=== PATIENT | male | born 1955 | race Caucasian/White ===

== ENCOUNTER 2021-05-11 10:14 | Outpatient (CLI) | payer MEDICARE, SELFPAY ==
--- NOTE | 2021-05-11 10:23 | XR_ITS ---
WS: [id number] LUMBAR SPINE: 8 VIEWS TECHNIQUE: AP, oblique, lateral, L5-S1 spot. Upright lateral projections in neutral, flexion and exte nsion. HISTORY: M54.50 - Low back pain, unspecified COMPARISON: None available. Very slight LEFT curvature lumbar spine with increase in lordosis. 5 mm anterolisthesis of L4 and ret rolisthesis of L3. Disc spaces are mildly narrowed throughout. Moderate facet joint sclerosis and anyi rowing at L4-5 and L5-S1. Very mild diffuse narrowing of the lumbar foramina but no high-grade stenos is. With flexion and extension the L3 retrolisthesis of L4 anterolisthesis do not change. SI joints are symmetric bilaterally. No soft tissue abnormalities. Mild scattered plaque within the abdominal aorta. XR/XR lumbar spine 6V w f/e [id number] IMPRESSION: 1. No acute fracture. 2. No lumbar spine instability. 3. Moderate facet joint arthritis at L4-5 and L5-S1. 4. Mild diffuse spondylosis.
== END 2021-05-11 10:15 | disposition home or self-care (01) ==
PROVIDERS: PCP Family Medicine; Visit Provider Emergency Medicine
DX: M47.816 Spondylosis without myelopathy or radiculopathy, lumbar region (principal); M47.817 Spondylosis without myelopathy or radiculopathy, lumbosacral region
CPT/HCPCS: 72114

== ENCOUNTER 2021-06-02 06:00 | Outpatient (RCR) | payer MEDICARE, SELFPAY | END 2021-06-19 23:59 | disposition home or self-care (01) | LOC: MPT 06:00 | PROVIDERS: PCP Family Medicine; Referring Provider Family Medicine; Visit Provider Family Medicine | DX: M54.9 Dorsalgia, unspecified (principal); G89.29 Other chronic pain | CPT/HCPCS: 97110; 97162 ==

== ENCOUNTER 2021-06-20 06:00 | Outpatient (RCR) | payer MEDICARE, SELFPAY | END 2021-07-20 23:59 | disposition home or self-care (01) | LOC: MPT 06:00 | PROVIDERS: PCP Family Medicine; Referring Provider Family Medicine; Visit Provider Family Medicine | DX: M54.9 Dorsalgia, unspecified (principal); G89.29 Other chronic pain | CPT/HCPCS: 97110; G0283 ==

== ENCOUNTER → 2021-06-23 10:24 | Outpatient (BNVA) | payer MEDICARE, SELFPAY | PROVIDERS: PCP Family Medicine; Visit Provider Family Medicine | DX: I48.0 Paroxysmal atrial fibrillation (principal); I10 Essential (primary) hypertension; Z13.220 Encounter for screening for lipoid disorders; Z13.6 Encounter for screening for cardiovascular disorders | CPT/HCPCS: 80053; 80061; 85025 ==

== ENCOUNTER 2021-07-21 06:00 | Outpatient (RCR) | payer MEDICARE, SELFPAY | END 2021-08-17 23:59 | disposition home or self-care (01) | LOC: MPT 06:00 | PROVIDERS: PCP Family Medicine; Visit Provider Family Medicine | DX: G89.29 Other chronic pain (principal); M54.9 Dorsalgia, unspecified | CPT/HCPCS: 97110 ==

== ENCOUNTER 2021-07-29 10:04 | Emergency (ER) | payer MEDICARE, SELFPAY ==
[2021-07-29 10:10] VITALS: BP 142/97; PULSE 111; RESP 18; TEMP 36.3; O2SAT 93; BMI 25.5
[2021-07-29 11:01] VITALS: BP 137/91; PULSE 105; RESP 16; TEMP 35.2; O2SAT 99
--- NOTE | 2021-07-29 11:06 | ED_ITS ---
Documented by User: CRYS Martínez 07/30/21 07:26 HPI - Back Pain/Injury General: Chief Complaint: Back Pain/Injury Stated Complaint: Sent from dr. jad lam Time Seen by Provider: 07/29/21 10:46 History of Present Illness: Patient is a 65-year-old male comes to the ED with lower back pain. Patient has been dealing with back pain and bilateral sciatica for the past 6 months. His PCP is currently getting him scheduled for an outpatient MRI. He has done 2 months of outpatient physical therapy first to see if that would help with his low back pain and he said no improvements. low back pain Rated an 8 out of 10. Pain radiates down both legs along the outside and back of legs. He saw his PCP yesterday and they gave him steroid injections and sent him home on prednisone. Denies any bladder or bowel incontinence, pelvic anesthesia or weakness to lower extremities. Associated symptoms: Deny abdominal pain, chills, dysuria, fatigue, fever(s), hematuria, nausea or vomiting Review of Systems Const: Denies: fever(s), chills or fatigue Eyes: Denies: change in vision or eye discomfort ENMT: Denies: throat pain, odynophagia, nasal discharge or nasal congestion Card: Denies: chest pain, palpitations, edema, swelling of feet/ankles, dyspnea on exertion or orthopnea Resp: Denies: dyspnea, productive cough or non-productive cough GI: Denies: abdominal pain, nausea, vomiting, diarrhea, constipation or hematochezia : Denies: flank pain, difficulty urinating, dysuria or hematuria Musc: Reports: back pain; Denies: neck pain or extremity swelling Skin/Breast: Denies: rash or new lesions Neuro: Denies: headache(s), numbness in extremities or weakness in extremities PFS ED PFSH: Medical History (Updated 07/30/21 @ 07:26 by CRYS Martínez) A-fib No pertinent family history Social History Smoking and tobacco status: current every day smoker Physical Exam Const: COMMON NORMALS: no acute distress, patient oriented x3 and alert GENERAL APPEARANCE: cooperative and comfortable HENMT: COMMON NORMALS: normocephalic HEAD & SCALP: normocephalic MOUTH: Normal oral and palatal mucosa present THROAT: posterior oropharynx normal and uvula midline Neck/C-Spine: COMMON NORMALS: supple GENERAL: Yes normal visual inspection Resp: COMMON NORMALS: normal respiratory effort, No retractions, No use of accessory muscles and clear to auscultation bilaterally AUSCULTATION: clear to auscultation bilaterally Cardio: COMMON NORMALS: regular rate, regular rhythm, S1 normal heart sound present, S2 normal heart sound present, No gallops present (Cardio), No clicks present (Cardio), No murmurs present (Cardio) and Peripheral pulses 2+ throughout RATE: regular rate RHYTHM: regular rhythm HEART SOUNDS: S1 normal heart sound present and S2 normal heart sound present PERIPHERAL PULSES: Peripheral pulses 2+ throughout GI: COMMON NORMALS: Normal to inspection, nondistended, normoactive bowel sounds present, Soft to palpation, non-tender and no masses PALPATION: Yes Soft to palpation : COMMON NORMALS: Yes no CVA tenderness BLADDER/KIDNEY EXAM: Yes no CVA tenderness Back/Pelvis: COMMON NORMALS: no CVA tenderness LUMBAR SPINE/LOWER BACK: Yes pain with ROM, Yes paraspinal muscle tenderness, Yes straight leg raise positive right and Yes straight leg raise positive left Extremity: COMMON NORMALS: normal to inspection Neuro: COMMON NORMALS: patient oriented x3 and moves all extremities SENSORIUM/ORIENTATION: Yes alert Skin: GENERAL SKIN EXAM: dry skin Course Vital Signs: Vital signs: Vital Signs Temperature 95.3 F L 07/29/21 11:01 Pulse Rate 105 H 07/29/21 11:01 Respiratory Rate 16 07/29/21 11:01 Blood Pressure 137/91 07/29/21 11:01 Pulse Oximetry 99 07/29/21 11:01 MDM - Back Pain/Injury Medical Decision Making Patient is a 65-year-old male who comes to the ED with chronic lower back pain with sciatica. He has been having symptoms for 6 months and his PCP has him scheduled for an outpatient MRI next month. PCP sent him here to the ED to get an MRI of lumbar spine. Patient is not having any emergent symptoms. Denies any cauda equina symptoms. Vitals stable. I talked with Dr. Nagy about patient case and he agreed that there is no need for an MRI to be done here in the emergency department. Patient was discharged home with some hydrocodone for pain and told to go to his scheduled outpatient MRI for further evaluation. Discharge Plan Discharge Patient Disposition: Home Clinical Impression: Bilateral sciatica Condition: Stable Prescriptions: No Action diclofenac sodium 50 mg tablet,delayed release (DR/EC) 50 mg PO BID PRN (Reason: pain) 30 Days Qty: 60 2RF Rx Instructions: WITH FOOD gabapentin 100 mg capsule 200 mg PO TID PRN (Reason: nerve pain) 30 Days Qty: 180 2RF metoprolol succinate 50 mg tablet extended release 24 hr 50 mg PO DAILY 30 Days Qty: 30 2RF aspirin [Adult Low Dose Aspirin] 81 mg tablet,delayed release (DR/EC) 81 mg PO DAILY 0RF prednisone 20 mg tablet 40 mg PO DAILY 5 Days Qty: 10 0RF epinephrine [EpiPen 2-Tommy] 0.3 mg/0.3 mL auto-injector 0.3 mg IM Q15M PRN (Reason: anaphylaxis) Qty: 2 0RF Rx Instructions: do not exceed 3 doses per episode Discharge Orders: Discharge ED (Routine); Ordered 07/29/21 Ordered By: Gualberto Garcia Referrals: Jad Lam MD [Primary Care Provider] - Discharge Diet: Regular Discharge Activity: Increase activity as tolerated Patient Instructions: Sciatica (ED), Opioid Safety Activity Restrictions/Additional Instructions: Follow-up with medical provider as directed in the next 7 to 10 days reevaluation.Take medications as prescribed. Return to the ER or your medical provider if condition worsens. Please read and understand discharge instructions. Thank you for choosing [facility] for your healthcare needs today. Please realize this is an emergency room and that we are providing you with a medical screening exam and this may not be complete and all inclusive of all the testing and or work up that you may need to determine your ailment or severity of your illness. It is very important that you follow up as instructed or that you return to the Emergency Department should you have concerns or if your condition changes or worsens in any way. Coding Level of Care Code ED Consulting Business Developer for Chg Fwd Exam Comprehensive Documented by User: Nito Nagy DO 07/30/21 10:04 HPI - Back Pain/Injury General: Chief Complaint: Back Pain/Injury Stated Complaint: Sent from dr. jad lam Time Seen by Provider: 07/29/21 10:46 [facility] ED PFSH: Medical History (Updated 07/30/21 @ 07:26 by CRYS Martínez) A-fib No pertinent family history Social History Smoking and tobacco status: current every day smoker Course Vital Signs: Vital signs: Vital Signs Temperature 95.3 F L 07/29/21 11:01 Pulse Rate 105 H 07/29/21 11:01 Respiratory Rate 16 07/29/21 11:01 Blood Pressure 137/91 07/29/21 11:01 Pulse Oximetry 99 07/29/21 11:01 MDM - Back Pain/Injury Medical Decision Making Patient is a 65-year-old male who comes to the ED with chronic lower back pain with sciatica. He has been having symptoms for 6 months and his PCP has him scheduled for an outpatient MRI next month. PCP sent him here to the ED to get an MRI of lumbar spine. Patient is not having any emergent symptoms. Denies any cauda equina symptoms. Vitals stable. I talked with Dr. Nagy about patient case and he agreed that there is no need for an MRI to be done here in the emergency department. Patient was discharged home with some hydrocodone for pain and told to go to his scheduled outpatient MRI for further evaluation. Chart reviewed and patient discussed with midlevel. Agree with assessment and plan. Discharge Plan Discharge Patient Disposition: Home Clinical Impression: Bilateral sciatica Condition: Stable Prescriptions: No Action diclofenac sodium 50 mg tablet,delayed release (DR/EC) 50 mg PO BID PRN (Reason: pain) 30 Days Qty: 60 2RF Rx Instructions: WITH FOOD gabapentin 100 mg capsule 200 mg PO TID PRN (Reason: nerve pain) 30 Days Qty: 180 2RF metoprolol succinate 50 mg tablet extended release 24 hr 50 mg PO DAILY 30 Days Qty: 30 2RF aspirin [Adult Low Dose Aspirin] 81 mg tablet,delayed release (DR/EC) 81 mg PO DAILY 0RF prednisone 20 mg tablet 40 mg PO DAILY 5 Days Qty: 10 0RF epinephrine [EpiPen 2-Tommy] 0.3 mg/0.3 mL auto-injector 0.3 mg IM Q15M PRN (Reason: anaphylaxis) Qty: 2 0RF Rx Instructions: do not exceed 3 doses per episode Discharge Orders: Discharge ED (Routine); Ordered 07/29/21 Ordered By: Gualberto Garcia Referrals: Jad Lam MD [Primary Care Provider] - Discharge Diet: Regular Discharge Activity: Increase activity as tolerated Patient Instructions: Sciatica (ED), Opioid Safety Activity Restrictions/Additional Instructions: Follow-up with medical provider as directed in the next 7 to 10 days reevaluation.Take medications as prescribed. Return to the ER or your medical provider if condition worsens. Please read and understand discharge instructions. Thank you for choosing [facility] for your healthcare needs today. Please realize this is an emergency room and that we are providing you with a medical screening exam and this may not be complete and all inclusive of all the testing and or work up that you may need to determine your ailment or severity of your illness. It is very important that you follow up as instructed or that you return to the Emergency Department should you have concerns or if your condition changes or worsens in any way. Coding Level of Care Code ED Consulting Business Developer for Aruna Fwd Exam Comprehensive
== END 2021-07-29 11:23 | disposition home or self-care (01) ==
PROVIDERS: Emergency Provider Physician Assistant; PCP Family Medicine
DX: M54.32 Sciatica, left side (principal); M54.31 Sciatica, right side; Z79.82 Long term (current) use of aspirin; F17.210 Nicotine dependence, cigarettes, uncomplicated
CPT/HCPCS: 99282

== ENCOUNTER → 2021-08-17 09:47 | Outpatient (BNVA) | payer MEDICARE, SELFPAY | PROVIDERS: PCP Family Medicine; Visit Provider Nurse Practitioner Family | DX: Z01.818 Encounter for other preprocedural examination (principal); Z20.822 Contact with and (suspected) exposure to COVID-19 | CPT/HCPCS: 87635 ==

== ENCOUNTER 2021-08-21 09:21 | Day surgery (SDC) | payer MEDICARE, SELFPAY ==
[2021-08-20 11:56] VITALS: BMI 25.5
[2021-08-21] VITALS (10 sets, daily range): BP systolic 105–133; BP diastolic 62–103; PULSE 95–141; RESP 10–18; TEMP 36.3–36.6; O2SAT 94–100
--- NOTE | 2021-08-21 | XR_ITS ---
WS: [id number] INTRAOPERATIVE TECHNIQUE: 6 Spot fluoroscopic images for intraoperative purposes. FLUOROSCOPY TIME: 13.5 seconds CLINICAL INFORMATION: Spinal stenosis, lumbar regiion COMPARISON: None. FINDINGS: Localization marker overlying the RIGHT L5-S1 And RIGHT L4-L5 interspace. IMPRESSION: Images obtained for intraoperative purposes.
--- NOTE | 2021-08-21 | SCC_ITS ---
Procedure done: 1. Bilateral L4/5 laminectomy with partial facetectomies 2. Bilateral L5/S1 laminectomies with partial facetectomies 13.5 seconds of fluoroscopic guidance, for a cumulative dose of 12.68 mGy, was provided to Dr. Pollard by the radiology department. C-arm images of the lumbar spine were saved for the patient's permanent record. [facility]
--- NOTE | 2021-08-21 09:27 | ECG_ITS ---
[facility] Test Date: 2021-08-21 Pat Name: Johnny King Department: Room: Gender: Male Snap Attacher: : 1955 Requested By: Enoch Gaston Order Number: [id number] Snehal MD: Rosana Benedict M.D. Measurements Intervals [place] Rate: 103 P: CO: QRS: -45 QRSD: 109 T: 15 QT: 345 QTc: 452 Interpretive Statements ATRIAL FIBRILLATION WITH RAPID VENTRICULAR RESPONSE LEFT AXIS DEVIATION [QRS AXIS < -30] Compared to ECG 02/28/2016 08:08:01 No significant changes Electronically Signed On 08-22-2021 9:02:06 ENERGY EFFICIENCY ENGINEER by Rosana Benedict M.D. [email or web address]
[2021-08-21] MEDS: sodium chloride 0.9% 1,000 ML 30 ML IV (09:52)
[2021-08-21] MEDS: HYDROmorphone 1 mg/mL INJ 1 mL 0.5 MG IVP (12:29)
--- NOTE | 2021-08-21 12:34 | ANES.PREANE2 ---
Pre-Anesthetic Assessment Height/Weight: Height 1.93 m Weight 95.254 kg Temp Pulse Resp BP Pulse Ox 97.3 F L 95 18 133/87 96 08/21/21 09:38 08/21/21 09:38 08/21/21 12:29 08/21/21 09:38 08/21/21 12:29 Preop Diagnosis: Lumbar Stenosis w Neurogenic Claudication Operation Date: 08/21/21 11:55 Proposed Procedures p Lumbar decompression L4/5, L5/S1/ 98528/28965/m48.062(Bilateral) - Celso Pollard, DO Familial anesthetic complications: None Was Beta [place] taken within 24 hours: Yes Was Clonidine taken within 24 hours: N/A Last intake: Intake Last Liquid Date 08/21/21 Last Liquid Time 06:00 Last Solid Date 08/20/21 Last Solid Time 17:00 Social Alcohol and No tobacco Exam alert, oriented x 3, clear to auscultation bilaterally and regular rate & rhythm Airway Submandibular: within normal limits Cervical ROM: within normal limits Mallampati: Class II Dentition: chipped CV/HEM Atrial Fibrillation and Hypertension Metabolic Hyperlipidemia [facility] Lower Back Pain Anesthetic Plan ASA status: 3 Anesthesia: General Risk of > 500 ml blood loss (7ml/kg in children): No Medications/Allergies Home Medications Medication Instructions Recorded Confirmed Last Taken Type epinephrine 0.3 mg/0.3 mL 0.3 mg (0.3 mL) IM Q15M PRN #2 ea 03/12/21 08/20/21 Unknown Rx injection, auto-injector (EpiPen 2-Tommy) diclofenac sodium 50 mg 50 mg PO BID PRN 30 Days #60 tab 06/23/21 08/21/21 08/07/21 Rx tablet,delayed release gabapentin 100 mg capsule 200 mg PO TID PRN 30 Days #180 cap 06/23/21 08/21/21 08/20/21 Rx aspirin 81 mg tablet,delayed 81 mg PO DAILY 07/21/21 08/21/21 08/07/21 History release (Adult Low Dose Aspirin) metoprolol succinate 50 mg 50 mg PO DAILY 30 Days #30 tab 07/21/21 08/21/21 08/20/21 18:00 Rx tablet,extended release 24 hr tramadol 50 mg tablet 50 mg PO TID PRN 7 Days #30 tab 08/11/21 08/20/21 Unknown Rx Allergies Allergy/AdvReac Type Severity Reaction Status Date / Time venom-wasp Allergy Severe anaphylaxis Verified 08/20/21 11:58 Current Medications Generic Name Dose Route Start Last Admin Trade Name Freq PRN Reason Stop Dose Admin Sodium Chloride 1,000 mls @ 30 mls/hr 08/21/21 09:30 08/21/21 09:52 Sodium Chloride 0.9% IV 08/22/21 09:29 30 mls/hr .Q24H ANAID Administration PFSH Anesthesia Medical History A-fib No pertinent family history Social History Smoking and tobacco status: current every day smoker Data Anesthesia Cardiac Studies: No Data to Display
--- NOTE | 2021-08-21 12:49 | W.PM.OPSUD ---
Surgery/Procedure H&P Update DATE OF PROCEDURE: August 21, 2021 DATE H&P PERFORMED: 08/06/21 H&P UPDATE INFORMATION: I have reviewed H&P completed within last 30 days, I have examined patient prior to procedure and No changes to prior documentation PREOP DIAGNOSIS: Lumbar Stenosis w Neurogenic Claudication PLANNED PROCEDURE: Operation Date: 08/21/21 11:55 Proposed Procedures p Lumbar decompression L4/5, L5/S1/ 11897/39497/m48.062(Bilateral) - Celso Pollard DO
--- NOTE | 2021-08-21 15:12 | P.OP_ITS ---
Operative Report Date of procedure: August 21, 2021 Pre-op diagnosis: Preop Diagnosis Lumbar Stenosis w Neurogenic Claudication Post-op diagnosis: same Procedure done: 1. Bilateral L4/5 laminectomy with partial facetectomies 2. Bilateral L5/S1 laminectomies with partial facetectomies Surgeon: Celso Pollard Improvement Auditor: Jun Rowley Improvement Auditor: The surgical garment assembler, Jun Rowley, PAC was needed for his expertise under the microscope. He was important and necessary throughout the procedure to complete in a safe and timely manner. He assisted with patient positioning prepping and draping tissue retraction suctioning of the operative field protection of the dural sac and tissue closure Estimated blood loss (mL): 5 Procedure: 1. Bilateral L4/5 laminectomy with partial facetectomies 2. Bilateral L5/S1 laminectomies with partial facetectomies Patient is brought to the operative suite. After undergoing anesthesia they are placed in the prone position. All areas of impingement are well padded. Patient is then prepped and draped in the normal sterile fashion. A skin incision is made over the L4/5 level. This is confirmed under c-arm guidance. A series of dilators are passed and the tubular retractor is docked on the L4 lamina. A bovie is used to clear the soft tissue off the lamina and the L 4/5 facet joint. A high speed melissa is then used to perform the laminectomy and take down the medial aspect of the L 4/5 facet joint. A kerrison rongeure was then used to take down the remaining lamina and smooth the edged of the laminectomy up to the point where the ligamentum flavum attaches. Attention was then brought to the medial aspect of the facet joint. The remaining medial aspect of the superior and inferior aspect of the facet joint were taken down with the kerrison from the pedicle of L4 to L 5. The facet joint had significant hypertrophy. Attention was then brought to the Ligamentum Flavum. The ligament was taken down from the lamina of L4 to L5 and out medially to the remaining facet joint. The ligament was thick. The dura was then exposed. The dura was in good repair. The L4 nerve was then traced with a curette out the L4/5 foramen and found to be adequately decompressed. The L5 nerve was traced with a curette around the L5 pedicle. The lateral recess was opened with a kerrison helping to further decompress the L5 nerve. The tubular retractor was then tilted to the contralateral side. The bovie was used to take down the soft tissue on the spinous process. The high speed melissa was used to take down the spinous process and then the contralateral lamina of L4. The kerrison rongeur was used to take down the remaining lamina to the point where the ligamentum flavum attached and the ligamentum flavum was taken down from L4 to L5. The kerrison rongeur was then used to reach across and take down the medial aspect of the contralateral L4/5 facet joint.The currete was used to trace the contralateral L4 nerve out the L4/5 foramen to make sure it was decompressed adequatesly and the L5 was traced around the L5 pedicle. The lateral recess was opened further with the kerrison to ensure the L5 is ad equately decompressed. Wound is then irrigated copiously with saline and surgiflo is used to stop any bleeding. The tubular retractor is removed and A skin incision is made over the L5/S1 level. This is confirmed under c-arm guidance. A series of dilators are passed and the tubular retractor is docked on the L5 lamina. A bovie is used to clear the soft tissue off the lamina and the L 5/S1 facet joint. A high speed melissa is then used to perform the laminectomy and take down the medial aspect of the L 5/S1 facet joint. A kerrison rongeure was then used to take down the remaining lamina and smooth the edged of the laminectomy up to the point where the ligamentum flavum attaches. Attention was then brought to the medial aspect of the facet joint. The remaining medial aspect of the superior and inferior aspect of the facet joint were taken down with the kerrison from the pedicle of L5 to S1. The facet joint had significant hypertrophy. Attention was then brought to the Ligamentum Flavum. The ligament was taken down from the lamina of L5 to S1 and out medially to the remaining facet joint. The ligament was thick. The dura was then exposed. The dura was in good repair. The L5 nerve was then traced with a curette out the L5/S1 foramen and found to be adequately decompressed. The S1 nerve was traced with a curette around the S1 pedicle. The lateral recess was opened with a kerrison helping to further decompress the S1 nerve. The tubular retractor was then tilted to the contralateral side. The bovie was used to take down the soft tissue on the spinous process. The high speed melissa was used to take down the spinous process and then the contralateral lamina of L5. The kerrison rongeur was used to take down the remaining lamina to the point where the ligamentum flavum attached and the ligamentum flavum was taken down from L5 to S1. The kerrison rongeur was then used to reach across and take down the medial aspect of the contralateral L5/S1 facet joint.The currete was used to trace the contralateral L5 nerve out the L5/S1 foramen to make sure it was decompressed adequatesly and the S1 was traced around the S1 pedicle. The lateral recess was opened further with the kerrison to ensure the S1 is adequately decompressed. Wound is then irrigated copiously with saline and surgiflo is used to stop any bleeding. The tubular retractor is removed and the wound is closed with vicryl and monocryl suture. Glue is then used to protect the wound. A sterile dressing is then placed. Patient was then placed in the supine position and transferred to the PACU in stable condition.
--- NOTE | 2021-08-21 16:23 | ANE.PACU2 ---
Inpatient post-anesthesia follow up: Airway intact: Yes Vital signs: Temperature 97.8 F Pulse Rate 97 Respiratory Rate 16 Blood Pressure 126/88 Pulse Oximetry 97 Oxygen Delivery Me thod Room Air Oxygen Flow Rate Fraction of Inspir ed Oxygen Hydration adequate: Yes Nausea and vomiting: No Pain level: 2 Mental status: Baseline
== END 2021-08-21 16:00 | disposition home or self-care (01) ==
PROVIDERS: PCP Family Medicine; Visit Provider Orthopaedic Surgery
PROC: (CPT 63005; principal; 2021-08-21 11:45)
DX: M48.062 Spinal stenosis, lumbar region with neurogenic claudication (principal); I48.91 Unspecified atrial fibrillation; I10 Essential (primary) hypertension; E78.5 Hyperlipidemia, unspecified; Z79.82 Long term (current) use of aspirin; F17.210 Nicotine dependence, cigarettes, uncomplicated
CPT/HCPCS: 63047; 63048; 72100; 76000; 93005; J0690; J1100; J1170; J2370; J2405; J2704; J3010; J7030

== ENCOUNTER → 2021-09-29 09:48 | Outpatient (BNVA) | payer MEDICARE, SELFPAY | PROVIDERS: PCP Family Medicine; Visit Provider Physician Assistant | DX: Z47.89 Encounter for other orthopedic aftercare (principal); Z98.890 Other specified postprocedural states | CPT/HCPCS: 99024; 99999 ==

== ENCOUNTER → 2022-10-27 10:06 | Outpatient (BNVA) | payer MEDICARE, SELFPAY | PROVIDERS: PCP Family Medicine; Visit Provider Family Medicine | DX: I10 Essential (primary) hypertension (principal); Z13.1 Encounter for screening for diabetes mellitus; I48.91 Unspecified atrial fibrillation; E78.1 Pure hyperglyceridemia | CPT/HCPCS: 80053; 80061; 85025 ==

== ENCOUNTER → 2022-12-08 09:44 | Outpatient (BNVA) | payer MEDICARE, SELFPAY | PROVIDERS: PCP Family Medicine; Referring Provider Family Medicine; Visit Provider Nurse Practitioner Family | DX: L57.0 Actinic keratosis (principal); L57.8 Other skin changes due to chronic exposure to nonionizing radiation; L85.3 Xerosis cutis; L82.1 Other seborrheic keratosis; L81.4 Other melanin hyperpigmentation; D22.5 Melanocytic nevi of trunk; Z71.89 Other specified counseling | CPT/HCPCS: 11102; 17000; 99203 ==

== ENCOUNTER → 2024-06-06 14:11 | Outpatient (BNVA) | payer MEDICARE, SELFPAY | PROVIDERS: PCP Family Medicine; Visit Provider Nurse Practitioner | DX: S99.922A Unspecified injury of left foot, initial encounter (principal); W22.8XXA Striking against or struck by other objects, initial encounter | CPT/HCPCS: 73630 ==

== ENCOUNTER → 2024-12-19 09:24 | Outpatient (BNVA) | payer MEDICARE, SELFPAY | PROVIDERS: PCP Family Medicine; Visit Provider Family Medicine | DX: E78.1 Pure hyperglyceridemia (principal); Z13.1 Encounter for screening for diabetes mellitus | CPT/HCPCS: 80053; 80061 ==